=== PATIENT | male | born 1965 | race Caucasian/White ===

== ENCOUNTER 2019-09-27 16:55 | Emergency (ER) | payer MEDICAID, OTHER ==
[~2019-09-27] VITALS: Ht 170.2 cm; Wt 76.9 kg
[~2019-09-27 16:55] MED LIST: NAPR-1144 PO
[2019-09-27 17:39] VITALS: BP 135/90
[2019-09-27 18:44] LABS: HEMOGLOBIN 12.2 g/dl (14.0-17.9); MEAN CORPUSCULAR HEMOGLOBIN 38.2 PG (27.0-31.0); MEAN CORPUSCULAR HGB CONC 34.7 g/dL (33.0-36.5); MEAN CORPUSCULAR VOLUME 110.1 FL (78-98); PLATELET COUNT 438 X10'3 (140-440); RED BLOOD COUNT 3.18 X10'6 (4.70-6.10); RED CELL DISTRIBUTION WIDTH 16.7 % (11.5-14.5); WHITE BLOOD COUNT 11.4 X10'3 (4.5-11.0)
[2019-09-27 18:56] LABS: ALANINE AMINOTRANSFERASE 31 U/L (12-78); ALBUMIN 2.1 G/DL (3.4-5.0); ALKALINE PHOSPHATASE 576 IU/L (46-116); ANION GAP 6 (8-16); ASPARTATE AMINO TRANSFERASE 173 U/L (10-37); BILIRUBIN,TOTAL 9.6 MG/DL (0.1-1.0); BLOOD UREA NITROGEN 6 MG/DL (7-18); BUN/CREATININE RATIO 6.8 (5.4-32.0); CALCIUM 8.1 MG/DL (8.5-10.1); CHLORIDE 100 MMOL/L (99-107); CREATININE 0.88 MG/DL (0.60-1.10); ETHANOL 0.204 GM/DL (0.0-0.010); GLUCOSE 106 MG/DL (70-104); LIPASE 355 U/L (73-393); SODIUM 135 MMOL/L (135-145); TOTAL CARBON DIOXIDE 29.3 MMOL/L (24-32); eGFR 90 ML/MIN
[2019-09-27 19:17] LABS: ANISOCYTOSIS 1+; PLATELET ESTIMATE NORMAL; TOTAL CELLS COUNTED 100
[2019-09-27 19:18] LABS: TARGET CELLS 2+
[2019-09-27 19:36] LABS: ALBUMIN/GLOBULIN RATIO 0.3 (1.1-1.5); TOTAL PROTEIN 8.4 G/DL (6.4-8.2)
--- NOTE | 2019-09-27 19:41 | NUR ---
[employer] tech at bedside.
[2019-09-27] MEDS ORDERED: normal saline 1000ML IV soln IVB ONE (20:15)
[2019-09-27] MEDS ORDERED: ondansetron/PF 4mg/2ml inj IV ONE (20:15)
[2019-09-27 20:17] LABS: ACETAMINOPHEN < 2.0 UG/ML (10-30); POTASSIUM 3.6 MMOL/L (3.5-5.1)
== END 2019-09-27 20:40 | disposition left against medical advice (07) ==
LOC: ER 16:55
DX: F10.10 Alcohol abuse, uncomplicated (principal); E80.6 Other disorders of bilirubin metabolism; K76.0 Fatty (change of) liver, not elsewhere classified; K70.10 Alcoholic hepatitis without ascites; E78.00 Pure hypercholesterolemia, unspecified; I10 Essential (primary) hypertension; J44.9 Chronic obstructive pulmonary disease, unspecified; F32.9 Major depressive disorder, single episode, unspecified; Z79.899 Other long term (current) drug therapy
CPT/HCPCS: 36415; 74176; 76700; 80053; 80320; 80329; 82140; 82948; 83690; 85025; 85610; 93005; 99285

== ENCOUNTER 2019-09-29 13:16 | Emergency (ER) | payer OTHER ==
[~2019-09-29] VITALS: Ht 170.2 cm; Wt 79.0 kg
[2019-09-29 15:28] LABS: HEMOGLOBIN 11.5 g/dl (14.0-17.9)
[2019-09-29 15:30] LABS: HEMATOCRIT 33.9 % (42.0-52.0); MEAN CORPUSCULAR HEMOGLOBIN 37.9 PG (27.0-31.0); MEAN CORPUSCULAR HGB CONC 34.1 g/dL (33.0-36.5); MEAN CORPUSCULAR VOLUME 111.1 FL (78-98); MEAN PLATELET VOLUME 8.1 FL (7.4-10.4); PLATELET COUNT 370 X10'3 (140-440); RED BLOOD COUNT 3.05 X10'6 (4.70-6.10); RED CELL DISTRIBUTION WIDTH 16.8 % (11.5-14.5); WHITE BLOOD COUNT 12.8 X10'3 (4.5-11.0)
[2019-09-29 15:36] LABS: PARTIAL THROMBOPLASTIN TIME 31 SECONDS (22-32)
[2019-09-29 15:41] LABS: ALANINE AMINOTRANSFERASE 27 U/L (12-78); ALBUMIN 1.9 G/DL (3.4-5.0); ALBUMIN/GLOBULIN RATIO 0.3 (1.1-1.5); ALKALINE PHOSPHATASE 521 IU/L (46-116); ANION GAP 8 (8-16); ASPARTATE AMINO TRANSFERASE 155 U/L (10-37); BILIRUBIN,TOTAL 12.1 MG/DL (0.1-1.0); BLOOD UREA NITROGEN 7 MG/DL (7-18); BUN/CREATININE RATIO 8.1 (5.4-32.0); CALCIUM 8.3 MG/DL (8.5-10.1); CHLORIDE 98 MMOL/L (99-107); CREATININE 0.86 MG/DL (0.60-1.10); GLUCOSE 105 MG/DL (70-104); POTASSIUM 4.1 MMOL/L (3.5-5.1); SODIUM 135 MMOL/L (135-145); TOTAL CARBON DIOXIDE 28.6 MMOL/L (24-32); TOTAL PROTEIN 7.9 G/DL (6.4-8.2); eGFR > 90 ML/MIN
[2019-09-29 15:56] LABS: ANISOCYTOSIS 1+; PLATELET ESTIMATE NORMAL; POLYCHROMASIA 1+; TOTAL CELLS COUNTED 100
[2019-09-29 15:57] LABS: TARGET CELLS 2+
[2019-09-29 16:15] LABS: ETHANOL < 0.010 GM/DL (0.0-0.010)
[2019-09-29] MEDS ORDERED: LACT10SO PO (16:19)
[2019-09-29] MEDS ORDERED: lactulose 20gm/30ml cup PO ONE (16:25)
[2019-09-29 16:42] VITALS: BP 134/82
== END 2019-09-29 16:44 | disposition home or self-care (01) ==
LOC: ER 13:17
DX: F10.20 Alcohol dependence, uncomplicated (principal); K74.60 Unspecified cirrhosis of liver; L55.0 Sunburn of first degree; R14.0 Abdominal distension (gaseous); E78.00 Pure hypercholesterolemia, unspecified; I10 Essential (primary) hypertension; J44.9 Chronic obstructive pulmonary disease, unspecified; Y90.9 Presence of alcohol in blood, level not specified
CPT/HCPCS: 36415; 80053; 80320; 85025; 85610; 85730; 99283